=== PATIENT | female | born 1950 | race Caucasian/White ===

== ENCOUNTER 2021-05-09 12:56 | Emergency (ER) | payer MEDICARE, OTHER ==
[2021-05-09 13:26] VITALS: BP 158/85; PULSE 68
[2021-05-09] MEDS ORDERED: Ondansetron 4 MG/2 ML SDV IVPUSH ONE (13:26)
[2021-05-09] MEDS ORDERED: LORazepam 2 MG/ML SDV IVPUSH ONE (13:26)
[2021-05-09] MEDS ORDERED: Sodium Chloride 0.9% 1,000 ML IV SCH (13:30)
[2021-05-09 14:02] LABS: CHLORIDE,CL 103 mmol/L (98-107); SODIUM,NA 138 mmol/L (136-145)
[2021-05-09 14:03] LABS: ANION GAP 11.9 mmol/L (5-15)
--- NOTE | 2021-05-09 14:03 | EDM.PDOC ---
ED HPI GENERAL MEDICAL PROBLEM - General Chief Complaint: General Time Seen by Provider: 05/09/21 13:05 Source of Information: Reports: Patient, Family History Limitations: Reports: No Limitations - History of Present Illness INITIAL COMMENTS - FREE TEXT/NARRATIVE: Pt. presents to ER with complaints of severe dizziness, nausea, and vomiting. Pt. states that symptoms started this AM. She denies any headache. She has a history or vertigo in the past and did take some meclizine before coming to ER but it did not help. Pt. initially stated that she noticed weakness in her L upper extremity, but later stated that she was experiencing heaviness on both sides. She has not had any acute vision loss or change. No problems with speech. Denies any headache. Onset: Today - Related Data Allergies Allergy/AdvReac Type Severity Reaction Status Date / Time No Known Allergies Allergy Verified 09/21/14 10:41 Home Meds: Home Meds Acetaminophen [Tylenol] 650 mg PO Q4H PRN 09/08/14 [History] Lenny/D3/Mag11/Zinc/Fashion Intern/Christian/Bor [Caltrate 600+D Plus Tablet] 1 tab PO BIDMEALS 09/08/14 [History] Vit C/Vit E/Lutein/Minerals 1 [Prosight with Lutein] 1 cap PO DAILY 09/08/14 [History] Aspirin [Halfprin] 81 mg PO DAILY #0 09/12/14 [Rx] Ibuprofen [Advil] 200 - 600 mg PO TID PRN #0 09/12/14 [Rx] Biotin 5 mg PO DAILY 05/09/21 [History] Cholecalciferol (Vitamin D3) [Vitamin D3] 1,000 unit PO DAILY 05/09/21 [History] Magnesium Oxide 400 mg PO DAILY 05/09/21 [History] ED ROS GENERAL - Review of Systems Review Of Systems: See Below Constitutional: Reports: No Symptoms HEENT: Reports: No Symptoms Respiratory: Reports: No Symptoms Cardiovascular: Reports: No Symptoms Endocrine: Reports: No Symptoms GI/Abdominal: Reports: Nausea, Vomiting : Reports: No Symptoms Musculoskeletal: Reports: No Symptoms Skin: Reports: No Symptoms Neurological: Reports: Other (Extremity "heaviness") Psychiatric: Reports: No Symptoms Hematologic/Lymphatic: Reports: No Symptoms Immunologic: Reports: No Symptoms ED EXAM, GENERAL - Physical Exam Exam: See Below Exam Limited By: No Limitations General Appearance: Alert, WD/WN, No Apparent Distress Eye Exam: Bilateral Eye: EOMI, Nystagmus, PERRL (L beating horizontal ) Throat/Mouth: Normal Inspection, Normal Lips, Normal Teeth, Normal Oropharynx, Normal Voice, No Airway Compromise Head: Atraumatic, Normocephalic Neck: Normal Inspection, Supple, Non-Tender, Full Range of Motion Respiratory/Chest: No Respiratory Distress, Lungs Clear, Normal Breath Sounds, No Accessory Muscle Use, Chest Non-Tender Cardiovascular: Normal Peripheral Pulses, Regular Rate, Rhythm, No Edema, No JVD Peripheral Pulses: 4+: Radial (L) GI/Abdominal: Soft, Non-Tender, No Distention, No Mass (Female) Exam: Deferred Rectal (Female) Exam: Deferred Back Exam: Normal Inspection, Full Range of Motion Extremities: Normal Inspection, Normal Range of Motion, Non-Tender, No Pedal Edema, Normal Capillary Refill Neurological: Alert, Oriented, CN II-XII Intact, Normal Cognition, Normal Gait, Normal Reflexes, No Motor/Sensory Deficits, Other (5/5 strength in upper and lower extremities. No pronator drift. Facial muscles are symmetrical. Speech is fluent. After treatment, gait was within normal limits. Finger to nose and heel to toe were within normal limits.) Psychiatric: Anxious, Tearful Skin Exam: Warm, Dry, Intact, Normal Color Lymphatic: No Adenopathy #1 Interpretation Rhythm: NSR [place]: Normal P-Wave: Present QRS: Normal ST-T: Normal QT: Normal Course - Vital Signs Last Recorded V/S: Last Vital Signs Temp 36.7 C 05/09/21 13:05 Pulse 68 05/09/21 13:05 Resp 16 05/09/21 13:05 BP 158/85 H 05/09/21 13:05 Pulse Ox 98 05/09/21 13:05 - Orders/Labs/Meds Orders: Active Orders 24 hr Category Date Time Status EKG Documentation Completion [RC] STAT Care 05/09/21 13:22 Active Sodium Chloride 0.9% [Normal Saline] 1,000 ml Med 05/09/21 13:30 Active IV ASDIRECTED Medication Orders Sodium Chloride (Normal Saline) 1,000 mls @ 1,000 mls/hr IV ASDIRECTED JOHN Last Admin: 05/09/21 13:35 Dose: 1,000 mls/hr Documented by: TRAY Labs: Laboratory Tests 05/09/21 05/09/21 05/09/21 Range/Units 13:28 13:28 13:28 WBC 7.6 (4.0-10.0) x10^3/uL RBC 4.84 (4.00-5.50) x10^6/uL Hgb 15.0 (12.0-16.0) g/dL Hct 42.1 (33.0-47.0) % MCV 87.0 D (78.0-93.0) fL MCH 31.0 (26.0-32.0) pg MCHC 35.6 (32.0-36.0) g/dL RDW Coeff of Lacey 12.1 (10.0-15.0) % Plt Count 261 (130-400) x10^3/uL Neut % (Auto) 51.2 (50.0-80.0) % Lymph % (Auto) 34.8 (25.0-50.0) % Hancock % (Auto) 9.6 (2.0-11.0) % Eos % (Auto) 4.1 H (0.0-4.0) % Baso % (Auto) 0.3 (0.2-1.2) % PT 10.0 (9.9-12.5) SEC INR 0.9 L (2.0-3.5) APTT (25.6-32.8) SEC Sodium 138 (136-145) mmol/L Potassium 3.9 (3.5-5.1) mmol/L Chloride 103 (98-107) mmol/L Carbon Dioxide 27 (21-32) mmol/L Anion Gap 11.9 (5-15) mmol/L BUN 16 (7-18) mg/dL Creatinine 0.9 (0.55-1.02) mg/dL Est Cr Clr Drug Dosing TNP Estimated GFR (MDRD) > 60 Glucose 99 (70-99) mg/dL Calcium 9.1 (8.5-10.1) mg/dL Corrected Calcium 9.3 (8.5-10.1) mg/dL Magnesium 2.0 (1.8-2.4) mg/dL Total Bilirubin 0.3 (0.2-1.0) mg/dL AST 19 (15-37) U/L ALT 21 (14-59) U/L Alkaline Phosphatase 85 (46-116) U/L Troponin I High Sens 49 (<=51) ng/L Total Protein 7.3 (6.4-8.2) g/dL Albumin 3.8 (3.4-5.0) g/dL Globulin 3.5 Albumin/Globulin Ratio 1.09 Ethyl Alcohol < 3 (0-3) mg/dL 05/09/21 Range/Units 13:28 WBC (4.0-10.0) x10^3/uL RBC (4.00-5.50) x10^6/uL Hgb (12.0-16.0) g/dL Hct (33.0-47.0) % MCV (78.0-93.0) fL MCH (26.0-32.0) pg MCHC (32.0-36.0) g/dL RDW Coeff of Lacey (10.0-15.0) % Plt Count (130-400) x10^3/uL Neut % (Auto) (50.0-80.0) % Lymph % (Auto) (25.0-50.0) % Hancock % (Auto) (2.0-11.0) % Eos % (Auto) (0.0-4.0) % Baso % (Auto) (0.2-1.2) % PT (9.9-12.5) SEC INR (2.0-3.5) APTT 24.5 L (25.6-32.8) SEC Sodium (136-145) mmol/L Potassium (3.5-5.1) mmol/L Chloride (98-107) mmol/L Carbon Dioxide (21-32) mmol/L Anion Gap (5-15) mmol/L BUN (7-18) mg/dL Creatinine (0.55-1.02) mg/dL Est Cr Clr Drug Dosing Estimated GFR (MDRD) Glucose (70-99) mg/dL Calcium (8.5-10.1) mg/dL Corrected Calcium (8.5-10.1) mg/dL Magnesium (1.8-2.4) mg/dL Total Bilirubin (0.2-1.0) mg/dL AST (15-37) U/L ALT (14-59) U/L Alkaline Phosphatase (46-116) U/L Troponin I High Sens (<=51) ng/L Total Protein (6.4-8.2) g/dL Albumin (3.4-5.0) g/dL Globulin Albumin/Globulin Ratio Ethyl Alcohol (0-3) mg/dL Meds: Medications Generic Name Dose Route Start Last Admin Trade Name Freq PRN Reason Stop Dose Admin Sodium Chloride 1,000 mls @ 1,000 mls/hr 05/09/21 13:30 05/09/21 13:35 Normal Saline IV 1,000 mls/hr ASDIRECTED JOHN Administration Discontinued Medications Generic Name Dose Route Start Last Admin Trade Name Freq PRN Reason Stop Dose Admin Lorazepam 1 mg 05/09/21 13:26 05/09/21 13:38 Lorazepam 2 Mg/Ml Sdv IVPUSH 05/09/21 13:27 1 mg STAT ONE Administration Lorazepam 1 packet 05/09/21 15:03 Take Home: Lorazepam 0.5 Mg Tab, 2 Tab Pack PO 05/09/21 15:04 ONETIME ONE Ondansetron HCl 4 mg 05/09/21 13:26 05/09/21 13:36 Ondansetron 4 Mg/2 Ml Sdv IVPUSH 05/09/21 13:27 4 mg ONETIME ONE Administration Ondansetron HCl 1 packet 05/09/21 15:05 Take Home: Ondansetron 4 Mg Tab.Dis, 2 Tab Pack PO 05/09/21 15:06 ONETIME ONE - Radiology Interpretation Free Text/Narrative:: CT brain negative for acute pathology - Re-Assessments/Exams Free Text/Narrative Re-Assessment/Exam: Pt. was upset she had to briefly wait in wheelchair as there were no beds available due to high patient volume in ER. Initially she was resistant to questioning about the onset of her symptoms and did not want to perform neuro exam because she did not feel good. She also did not initially want a CT scan but decided to after she was treated and started feeling better. Neuro exam was performed toward the end of her visit and was negative for acute focal abnormality. Pt. was given a liter of NS IV, zofran 4 mg IV, ativan 1 mg IV. She had taken meclizine at home prior to arrival to ER. She reported feeling much better at time of discharge. Departure - Departure Time of Disposition: 15:18 Disposition: Home, Self-Care 01 Clinical Impression: Vertigo - Discharge Information Instructions: Ondansetron oral dissolving tablet, Vertigo, Chts-vs-[id number], Lorazepam tablets Referrals: PCP,None [Primary Care Provider] - Forms: ED Department Discharge Additional Instructions: Continue with meclizine as needed for continued vertigo. Ativan 0.5mg by mouth 3 times a day if this is not helping. Zofran ODT 4mg 1 tab every 6-8 hours as needed for nausea/vomiting. Drink plenty of fluids. Minimize activity for the next several days. Recheck in clinic in 7-10 days. Sepsis Event Note (ED) - Evaluation Sepsis Screening Result: No Definite Risk - Focused Exam Vital Signs: Vital Signs Temp Pulse Resp BP Pulse Ox 05/09/21 13:05 36.7 C 68 16 158/85 H 98 - My Orders Last 24 Hours: My Active Orders 05/09/21 13:22 EKG Documentation Completion [RC] STAT 05/09/21 13:30 Sodium Chloride 0.9% [Normal Saline] 1,000 ml IV ASDIRECTED - Assessment/Plan Last 24 Hours: My Active Orders 05/09/21 13:22 EKG Documentation Completion [RC] STAT 05/09/21 13:30 Sodium Chloride 0.9% [Normal Saline] 1,000 ml IV ASDIRECTED Plan: Pt. was discharged. She was advised to follow-up in clinic in 7-10 days. She was given a short course of ativan as well as zofran ODT to take for nausea/vomiting. Advised to minimize activity for the next several days. Return to ER if symptoms worsen, if she has problems speaking/walking, if he has extremity weakness or facial asymmetry, or other worrisome signs/symptoms.
--- NOTE | 2021-05-09 14:28 | CT ---
[id number] CT/CT Head WO IV EXAM: NONCONTRAST HEAD CT INDICATION: VERTIGO, LEFT SIDED WEAKNESS. COMPARISON: September 01, 2018. DISCUSSION: The ventricles and sulci are normal in size and configuration. Stable mild chronic small vessel ischemic changes. No mass effect or midline shift. No acute hemorrhage or extra-axial fluid collection. No acute territorial infarct is identified. A limited look at the orbits and paranasal sinuses is unremarkable. IMPRESSION: 1. No acute findings. Chapin Hooks MD 05/09/21 1421 Thank you for allowing us to participate in the care of your patient.
[2021-05-09] MEDS ORDERED: Take Home: LORazepam 0.5 MG Tab, 2 Tab Pack PO ONE (15:03)
[2021-05-09] MEDS ORDERED: Take Home: Ondansetron 4 MG Tab.DIS, 2 Tab Pack PO ONE (15:05)
== END 2021-05-09 15:19 | disposition home or self-care (01) ==
LOC: VM.ED 12:56
DX: R42 Dizziness and giddiness (principal); R11.2 Nausea with vomiting, unspecified; Z79.82 Long term (current) use of aspirin
CPT/HCPCS: 36415; 70450; 80053; 80307; 83735; 84484; 85025; 85610; 85730; 93005; 93010; 96374; 96375; 99284; 99284-25; A9270-GY; J2060; J2405; J7030

== ENCOUNTER 2022-07-02 15:13 | Emergency (ER) | payer MEDICARE ==
[2022-07-02 15:54] VITALS: BP 107/65; PULSE 84
== END 2022-07-02 15:55 | disposition home or self-care (01) ==
LOC: VM.ED 15:13
DX: U07.1 COVID-19 (principal)
CPT/HCPCS: 99283; U0002

== ENCOUNTER 2024-09-08 01:30 | Emergency (ER) | payer MEDICARE ==
[2024-09-08] MEDS ORDERED: Sodium Chloride 0.9% 10 ML Syringe FLUSH PRN (01:43)
[2024-09-08] MEDS: dimenhyDRINATE 50 MG Tab PO ONE (01:52)
[2024-09-08] MEDS: Ondansetron 4 MG/2 ML SDV IVPUSH ONE (01:52)
[2024-09-08] MEDS: Take Home: Ondansetron 4 MG Tab.DIS, 5 Tab Pack PO ONE (02:17)
[2024-09-08 02:48] VITALS: BP 128/60; PULSE 60
== END 2024-09-08 02:30 | disposition home or self-care (01) ==
LOC: VM.ED 01:30
DX: H81.10 Benign paroxysmal vertigo, unspecified ear (principal); Z90.49 Acquired absence of other specified parts of digestive tract; Z79.899 Other long term (current) drug therapy
CPT/HCPCS: 96374; 96375; 99283-25; 99284; A9270-GY; J2405; J3360; Q0162